=== PATIENT | male | born 1970 | race Caucasian/White ===

== ENCOUNTER 2017-06-09 15:21 | Emergency (ER) | payer MEDICAID ==
[~2017-06-09] VITALS: Ht 182.9 cm; Wt 79.5 kg
[~2017-06-09 15:21] MED LIST: ATI1T PO; CLIN300C11 PO; NEOM28OI TOP; PANT-47 PO; VENL-191 PO; VENL75CA55 PO; ZIPR20CA2 PO; ZIPR60CA2 PO
[2017-06-09 15:38] VITALS: BP 132/98
[2017-06-09] MEDS ORDERED: mupirocin 2% ointment 22GM TP STA (15:45)
[2017-06-09] MEDS ORDERED: TETanus/Pertussis (Acell)/Diphther VAC/PF (Tdap-Adult) 0.5ml syringe IM ONE (15:45)
[2017-06-09] MEDS ORDERED: CefTRIAXone/D5W-Rocephin 1gm 50 ML IV ONE (15:45)
[2017-06-09] MEDS ORDERED: sulfamethoxazole/trimethoprim DS (800/160mg) tablet PO ONE (15:45)
[2017-06-09] MEDS ORDERED: SULF1TAB49 PO (16:05)
[2017-06-09] MEDS ORDERED: CEPH500C5 PO (16:05)
[2017-06-09 16:12] LABS: BASOPHILS % (AUTO) 0.4 % (0-1); EOSINOPHILS # (AUTO) 0.6 X10'3 (0-0.9); EOSINOPHILS % (AUTO) 5.5 % (0-6); HEMATOCRIT 43.3 % (42.0-52.0); HEMOGLOBIN 15.1 g/dl (14.0-17.9); LYMPHOCYTES # (AUTO) 1.1 X10'3 (1.1-4.8); LYMPHOCYTES % (AUTO) 10.8 % (21-51); MEAN CORPUSCULAR HEMOGLOBIN 31.3 PG (27.0-31.0); MEAN CORPUSCULAR HGB CONC 34.9 % (33.0-36.5); MEAN CORPUSCULAR VOLUME 89.4 FL (78-98); MONOCYTES # (AUTO) 0.9 X10'3 (0-0.9); MONOCYTES % (AUTO) 9.1 % (2-12); NEUTROPHILS # (AUTO) 7.7 X10'3 (1.8-7.7); NEUTROPHILS % (AUTO) 74.2 % (42-75); PLATELET COUNT 200 X10'3 (140-440); RED BLOOD COUNT 4.85 X10'6 (4.70-6.10); RED CELL DISTRIBUTION WIDTH 12.6 % (11.5-14.5); WHITE BLOOD COUNT 10.4 X10'3 (4.5-11.0)
[2017-06-09 16:24] LABS: ALBUMIN 3.3 G/DL (3.4-5.0); ANION GAP 9 (8-16); BLOOD UREA NITROGEN 15 MG/DL (7-18); BUN/CREATININE RATIO 18.1 (5.4-32.0); CHLORIDE 102 MMOL/L (99-107); CREATININE 0.83 MG/DL (0.60-1.10); GLUCOSE 141 MG/DL (70-104); POTASSIUM 3.8 MMOL/L (3.5-5.1); SODIUM 136 MMOL/L (135-145); TOTAL CARBON DIOXIDE 25.5 MMOL/L (24-32); eGFR > 90 ML/MIN
[2017-06-09] MEDS ORDERED: CefTRIAXone 1000mg IM Kit (w/lidocaine diluent) IM ONE (16:55)
== END 2017-06-09 17:20 | disposition home or self-care (01) ==
LOC: ER 15:22
DX: L02.413 Cutaneous abscess of right upper limb (principal); L03.113 Cellulitis of right upper limb; L01.00 Impetigo, unspecified; J45.909 Unspecified asthma, uncomplicated; F15.10 Other stimulant abuse, uncomplicated; F12.10 Cannabis abuse, uncomplicated; Z86.14 Personal history of Methicillin resistant Staphylococcus aureus infection; Z98.890 Other specified postprocedural states; Z56.0 Unemployment, unspecified; Z79.899 Other long term (current) drug therapy
CPT/HCPCS: 36415; 80048; 85025; 90471; 90715; 96372; 99284; J0696

== ENCOUNTER 2017-09-02 08:46 | Inpatient (IN) | payer MEDICAID ==
[~2017-09-02] VITALS: Ht 182.9 cm; Wt 75.0 kg
[~2017-09-02 08:46] MED LIST changes: +CEPH500C5 PO
[2017-09-02 09:28] LABS: BASOPHILS % (AUTO) 0.3 % (0-1); EOSINOPHILS # (AUTO) 0.4 X10'3 (0-0.9); EOSINOPHILS % (AUTO) 2.6 % (0-6); HEMATOCRIT 41.6 % (42.0-52.0); HEMOGLOBIN 14.6 g/dl (14.0-17.9); LYMPHOCYTES # (AUTO) 0.6 X10'3 (1.1-4.8); LYMPHOCYTES % (AUTO) 4.3 % (21-51); MEAN CORPUSCULAR HEMOGLOBIN 31.6 PG (27.0-31.0); MEAN CORPUSCULAR HGB CONC 35.1 % (33.0-36.5); MEAN CORPUSCULAR VOLUME 89.9 FL (78-98); MEAN PLATELET VOLUME 9.1 FL (7.4-10.4); MONOCYTES # (AUTO) 1.1 X10'3 (0-0.9); MONOCYTES % (AUTO) 7.3 % (2-12); NEUTROPHILS # (AUTO) 12.9 X10'3 (1.8-7.7); NEUTROPHILS % (AUTO) 85.5 % (42-75); PLATELET COUNT 173 X10'3 (140-440); RED BLOOD COUNT 4.63 X10'6 (4.70-6.10); RED CELL DISTRIBUTION WIDTH 12.9 % (11.5-14.5); WHITE BLOOD COUNT 15.1 X10'3 (4.5-11.0)
[2017-09-02 09:43] LABS: ALANINE AMINOTRANSFERASE 29 U/L (12-78); ALBUMIN 3.1 G/DL (3.4-5.0); ALBUMIN/GLOBULIN RATIO 0.8 (1.1-1.5); ALKALINE PHOSPHATASE 86 IU/L (46-116); ANION GAP 6 (8-16); ASPARTATE AMINO TRANSFERASE 23 U/L (10-37); BILIRUBIN,TOTAL 0.5 MG/DL (0.1-1.0); BLOOD UREA NITROGEN 15 MG/DL (7-18); BUN/CREATININE RATIO 17.9 (5.4-32.0); CALCIUM 8.6 MG/DL (8.5-10.1); CHLORIDE 103 MMOL/L (99-107); CREATININE 0.84 MG/DL (0.60-1.10); GLUCOSE 102 MG/DL (70-104); POTASSIUM 3.6 MMOL/L (3.5-5.1); SODIUM 138 MMOL/L (135-145); TOTAL CARBON DIOXIDE 29.4 MMOL/L (24-32); TOTAL PROTEIN 6.9 G/DL (6.4-8.2); eGFR > 90 ML/MIN
[2017-09-02] MEDS ORDERED: normal saline 1000ML IV soln IV ONE (10:05)
[2017-09-02] MEDS ORDERED: morphine 4 MG/ML inj SYRINge IV ONE (10:05)
[2017-09-02] MEDS ORDERED: vancomycin/NS 1 GM ADD-VANTAGE 250 ML IV ONE (10:05)
[2017-09-02] MEDS ORDERED: CefTRIAXone 2gm/D5W 50ml 50 ML IV ONE (10:05)
[2017-09-02] MEDS ORDERED: acetaminophen 325mg tablet PO PRN (10:40)
[2017-09-02] MEDS ORDERED: morphine 4 MG/ML inj SYRINge IV PRN ×2 (10:40)
[2017-09-02] MEDS ORDERED: mag hydrox/Alum hydrox/simeth 30ml oral suspension PO PRN (10:40)
[2017-09-02] MEDS ORDERED: magnesium hydroxide 30ml (MOM) UD suspension PO PRN (10:40)
[2017-09-02] MEDS ORDERED: HYDROcodone/acetaminophen 5mg/325mg tablet PO PRN (10:40)
[2017-09-02] MEDS ORDERED: ondansetron/PF 4mg/2ml inj IV PRN (10:40)
[2017-09-02] MEDS: vancomycin/NS 1 GM ADD-VANTAGE 250 ML IV SCH ×2 (11:28→19:44)
[2017-09-02 12:00] VITALS: BP 161/90
[2017-09-02] MEDS: dextrose 5%-1/2 normal saline 1,000 ML IV SCH (13:26)
[2017-09-02 19:00] VITALS: BP 134/83
[2017-09-02] MEDS: docusate sod 100mg capsule PO SCH (19:45)
[2017-09-02] MEDS ORDERED: vancomycin/NS 1 GM ADD-VANTAGE 250 ML IV SCH (20:00)
[2017-09-02 23:30] VITALS: BP 142/85
[2017-09-03] MEDS: dextrose 5%-1/2 normal saline 1,000 ML IV SCH ×3 (01:01→14:02)
[2017-09-03] MEDS: HYDROcodone/acetaminophen 10/325mg tab PO PRN (01:10)
[2017-09-03] MEDS: vancomycin/NS 1 GM ADD-VANTAGE 250 ML IV SCH ×2 (03:13→11:10)
[2017-09-03 05:05] LABS: BASOPHILS # (AUTO) 0.1 X10'3 (0-0.2); BASOPHILS % (AUTO) 0.8 % (0-1); EOSINOPHILS # (AUTO) 0.4 X10'3 (0-0.9); EOSINOPHILS % (AUTO) 2.8 % (0-6); HEMATOCRIT 40.6 % (42.0-52.0); HEMOGLOBIN 14.1 g/dl (14.0-17.9); LYMPHOCYTES # (AUTO) 1.2 X10'3 (1.1-4.8); LYMPHOCYTES % (AUTO) 9.3 % (21-51); MEAN CORPUSCULAR HEMOGLOBIN 31.4 PG (27.0-31.0); MEAN CORPUSCULAR HGB CONC 34.6 % (33.0-36.5); MEAN CORPUSCULAR VOLUME 90.6 FL (78-98); MEAN PLATELET VOLUME 9.9 FL (7.4-10.4); MONOCYTES # (AUTO) 1.4 X10'3 (0-0.9); MONOCYTES % (AUTO) 11.2 % (2-12); NEUTROPHILS # (AUTO) 9.5 X10'3 (1.8-7.7); NEUTROPHILS % (AUTO) 75.9 % (42-75); PLATELET COUNT 171 X10'3 (140-440); RED BLOOD COUNT 4.48 X10'6 (4.70-6.10); RED CELL DISTRIBUTION WIDTH 12.6 % (11.5-14.5); WHITE BLOOD COUNT 12.5 X10'3 (4.5-11.0)
[2017-09-03 05:25] LABS: ALBUMIN 2.5 G/DL (3.4-5.0); ANION GAP 10 (8-16); BLOOD UREA NITROGEN 11 MG/DL (7-18); BUN/CREATININE RATIO 13.1 (5.4-32.0); CALCIUM 8.2 MG/DL (8.5-10.1); CHLORIDE 101 MMOL/L (99-107); CREATININE 0.84 MG/DL (0.60-1.10); GLUCOSE 110 MG/DL (70-104); POTASSIUM 3.9 MMOL/L (3.5-5.1); SODIUM 137 MMOL/L (135-145); TOTAL CARBON DIOXIDE 26.4 MMOL/L (24-32); eGFR > 90 ML/MIN
[2017-09-03 09:22] VITALS: BP 152/90
[2017-09-03] MEDS: enoxaparin 40mg/0.4ml syringe SUBCUT SCH (09:29)
[2017-09-03] MEDS: docusate sod 100mg capsule PO SCH ×2 (09:29→22:03)
[2017-09-03] MEDS ORDERED: LORazepam 1 MG tablet PO PRN (09:50)
[2017-09-03] MEDS ORDERED: VANCOMYCIN LEVEL IV ONE (10:30)
[2017-09-03] MEDS: venlafaxine XR 75mg capsule (Q24H) PO SCH (11:10)
[2017-09-03 11:54] VITALS: BP 149/89
[2017-09-03 20:00] VITALS: BP 144/80
[2017-09-03] MEDS: lactobacillus rhamnosus 10,000 MMU CELLS/CAPSULE PO SCH (22:03)
[2017-09-03] MEDS: ziprasidone 20mg capsule PO SCH (22:03)
[2017-09-04] VITALS: BP 133/80
[2017-09-04] MEDS: dextrose 5%-1/2 normal saline 1,000 ML IV SCH ×3 (01:01→17:20)
[2017-09-04 07:25] LABS: BASOPHILS % (AUTO) 0.4 % (0-1); EOSINOPHILS # (AUTO) 0.5 X10'3 (0-0.9); EOSINOPHILS % (AUTO) 4.3 % (0-6); HEMATOCRIT 39.7 % (42.0-52.0); LYMPHOCYTES # (AUTO) 0.9 X10'3 (1.1-4.8); LYMPHOCYTES % (AUTO) 8.4 % (21-51); MEAN CORPUSCULAR HEMOGLOBIN 31.7 PG (27.0-31.0); MEAN CORPUSCULAR HGB CONC 35.3 % (33.0-36.5); MEAN CORPUSCULAR VOLUME 89.8 FL (78-98); MEAN PLATELET VOLUME 8.5 FL (7.4-10.4); MONOCYTES # (AUTO) 0.9 X10'3 (0-0.9); MONOCYTES % (AUTO) 8.6 % (2-12); NEUTROPHILS # (AUTO) 8.3 X10'3 (1.8-7.7); NEUTROPHILS % (AUTO) 78.3 % (42-75); PLATELET COUNT 183 X10'3 (140-440); RED BLOOD COUNT 4.42 X10'6 (4.70-6.10); RED CELL DISTRIBUTION WIDTH 12.4 % (11.5-14.5); WHITE BLOOD COUNT 10.6 X10'3 (4.5-11.0)
[2017-09-04 07:36] LABS: ALBUMIN 2.4 G/DL (3.4-5.0); ANION GAP 5 (8-16); BLOOD UREA NITROGEN 10 MG/DL (7-18); BUN/CREATININE RATIO 13.3 (5.4-32.0); CALCIUM 8.7 MG/DL (8.5-10.1); CHLORIDE 105 MMOL/L (99-107); CREATININE 0.75 MG/DL (0.60-1.10); GLUCOSE 114 MG/DL (70-104); SODIUM 138 MMOL/L (135-145); TOTAL CARBON DIOXIDE 28.1 MMOL/L (24-32); eGFR > 90 ML/MIN
[2017-09-04] MEDS: pantoprazole 40mg Tablet.DR PO SCH (08:43)
[2017-09-04] MEDS: lactobacillus rhamnosus 10,000 MMU CELLS/CAPSULE PO SCH ×2 (08:43→20:08)
[2017-09-04] MEDS: venlafaxine XR 75mg capsule (Q24H) PO SCH (08:43)
[2017-09-04] MEDS: docusate sod 100mg capsule PO SCH ×2 (08:43→20:08)
[2017-09-04] MEDS: enoxaparin 40mg/0.4ml syringe SUBCUT SCH (08:44)
[2017-09-04 08:50] VITALS: BP 132/92
[2017-09-04 11:38] VITALS: BP 145/87
[2017-09-04 18:00] VITALS: BP 141/76
[2017-09-04] MEDS ORDERED: VANCOMYCIN LEVEL IV ONE (18:30)
[2017-09-04] MEDS: ziprasidone 20mg capsule PO SCH (20:09)
[2017-09-04] MEDS: HYDROcodone/acetaminophen 10/325mg tab PO PRN (20:14)
[2017-09-04 22:04] LABS: URINE AMPHETAMINE SCREEN NEGATIVE (Neg); URINE BARBITUATE SCREEN NEGATIVE (Neg); URINE BENZODIAZEPINES SCREEN NEGATIVE (Neg); URINE CANNABINOID SCREEN NEGATIVE (Neg); URINE COCAINE SCREEN NEGATIVE (Neg); URINE METHADONE SCREEN NEGATIVE (Neg); URINE OPIATE SCREEN NEGATIVE (Neg); URINE PHENCYCLIDINE SCREEN NEGATIVE (Neg)
[2017-09-05] VITALS: BP 124/83
[2017-09-05 05:03] LABS: BASOPHILS # (AUTO) 0.1 X10'3 (0-0.2); BASOPHILS % (AUTO) 1.2 % (0-1); EOSINOPHILS # (AUTO) 0.6 X10'3 (0-0.9); EOSINOPHILS % (AUTO) 6.9 % (0-6); HEMATOCRIT 40.9 % (42.0-52.0); HEMOGLOBIN 14.1 g/dl (14.0-17.9); LYMPHOCYTES # (AUTO) 1.3 X10'3 (1.1-4.8); MEAN CORPUSCULAR HEMOGLOBIN 31.1 PG (27.0-31.0); MEAN CORPUSCULAR HGB CONC 34.4 % (33.0-36.5); MEAN CORPUSCULAR VOLUME 90.4 FL (78-98); MEAN PLATELET VOLUME 8.8 FL (7.4-10.4); MONOCYTES # (AUTO) 0.8 X10'3 (0-0.9); MONOCYTES % (AUTO) 9.9 % (2-12); NEUTROPHILS # (AUTO) 5.3 X10'3 (1.8-7.7); PLATELET COUNT 194 X10'3 (140-440); RED BLOOD COUNT 4.52 X10'6 (4.70-6.10); RED CELL DISTRIBUTION WIDTH 12.4 % (11.5-14.5)
[2017-09-05 05:25] LABS: ALBUMIN 2.4 G/DL (3.4-5.0); BLOOD UREA NITROGEN 10 MG/DL (7-18); BUN/CREATININE RATIO 14.1 (5.4-32.0); CALCIUM 8.8 MG/DL (8.5-10.1); CHLORIDE 105 MMOL/L (99-107); CREATININE 0.71 MG/DL (0.60-1.10); GLUCOSE 101 MG/DL (70-104); POTASSIUM 4.1 MMOL/L (3.5-5.1); TOTAL CARBON DIOXIDE 28.9 MMOL/L (24-32); eGFR > 90 ML/MIN
[2017-09-05 05:49] LABS: ANION GAP 6 (8-16); SODIUM 140 MMOL/L (135-145)
[2017-09-05 07:13] VITALS: BP 142/90
[2017-09-05] MEDS: venlafaxine XR 75mg capsule (Q24H) PO SCH (07:40)
[2017-09-05] MEDS: pantoprazole 40mg Tablet.DR PO SCH (07:40)
[2017-09-05] MEDS: dextrose 5%-1/2 normal saline 1,000 ML IV SCH ×2 (07:40→18:38)
[2017-09-05] MEDS: lactobacillus rhamnosus 10,000 MMU CELLS/CAPSULE PO SCH ×2 (07:40→19:19)
[2017-09-05] MEDS: docusate sod 100mg capsule PO SCH ×2 (07:41→19:20)
[2017-09-05] MEDS: enoxaparin 40mg/0.4ml syringe SUBCUT SCH (07:41)
[2017-09-05 12:06] VITALS: BP 147/91
[2017-09-05 18:00] VITALS: BP 155/80
[2017-09-05] MEDS: ziprasidone 20mg capsule PO SCH (20:51)
[2017-09-05 21:17] LABS: CLARITY,URINE CLEAR (Clear); COLOR,URINE YELLOW (Yellow); GLUCOSE, URINE NEGATIVE (Neg); KETONES,URINE NEGATIVE (Neg); LEUKOCYTE ESTERASE ,URINE NEGATIVE (Neg); NITRITES, URINE NEGATIVE (Neg); OCCULT BLOOD,URINE NEGATIVE (Neg); PROTEIN,URINE NEGATIVE (Neg); UA COLLECTION TYPE NON-SPECIFIED; UROBILINOGEN,URINE 0.2 E.U/dL (0.2-1.0)
[2017-09-06] VITALS: BP 129/79
[2017-09-06] MEDS: dextrose 5%-1/2 normal saline 1,000 ML IV SCH (00:59)
[2017-09-06 07:14] LABS: ALBUMIN 2.5 G/DL (3.4-5.0); ANION GAP 6 (8-16); BLOOD UREA NITROGEN 14 MG/DL (7-18); BUN/CREATININE RATIO 16.9 (5.4-32.0); CALCIUM 8.9 MG/DL (8.5-10.1); CHLORIDE 105 MMOL/L (99-107); CREATININE 0.83 MG/DL (0.60-1.10); GLUCOSE 106 MG/DL (70-104); POTASSIUM 4.2 MMOL/L (3.5-5.1); SODIUM 141 MMOL/L (135-145); TOTAL CARBON DIOXIDE 29.8 MMOL/L (24-32); eGFR > 90 ML/MIN
[2017-09-06 07:35] LABS: BASOPHILS # (AUTO) 0.1 X10'3 (0-0.2); BASOPHILS % (AUTO) 1.1 % (0-1); EOSINOPHILS # (AUTO) 0.5 X10'3 (0-0.9); EOSINOPHILS % (AUTO) 6.1 % (0-6); HEMATOCRIT 44.7 % (42.0-52.0); HEMOGLOBIN 15.4 g/dl (14.0-17.9); LYMPHOCYTES # (AUTO) 1.3 X10'3 (1.1-4.8); LYMPHOCYTES % (AUTO) 16.4 % (21-51); MEAN CORPUSCULAR HEMOGLOBIN 31.3 PG (27.0-31.0); MEAN CORPUSCULAR HGB CONC 34.4 % (33.0-36.5); MEAN PLATELET VOLUME 8.5 FL (7.4-10.4); MONOCYTES # (AUTO) 0.8 X10'3 (0-0.9); MONOCYTES % (AUTO) 10.5 % (2-12); NEUTROPHILS # (AUTO) 4.9 X10'3 (1.8-7.7); NEUTROPHILS % (AUTO) 65.9 % (42-75); PLATELET COUNT 220 X10'3 (140-440); RED BLOOD COUNT 4.92 X10'6 (4.70-6.10); RED CELL DISTRIBUTION WIDTH 11.9 % (11.5-14.5); WHITE BLOOD COUNT 7.6 X10'3 (4.5-11.0)
[2017-09-06 08:00] VITALS: BP 145/84
[2017-09-06] MEDS: enoxaparin 40mg/0.4ml syringe SUBCUT SCH (08:45)
[2017-09-06] MEDS: pantoprazole 40mg Tablet.DR PO SCH (08:46)
[2017-09-06] MEDS: lactobacillus rhamnosus 10,000 MMU CELLS/CAPSULE PO SCH (08:46)
[2017-09-06] MEDS: docusate sod 100mg capsule PO SCH (08:46)
[2017-09-06] MEDS: venlafaxine XR 75mg capsule (Q24H) PO SCH (08:46)
[2017-09-06 12:00] VITALS: BP 134/72
[2017-09-06] MEDS ORDERED: MUPI22OI30 TOP (13:06)
== END 2017-09-06 15:46 | disposition home or self-care (01) | DRG 383 ==
LOC: ER 08:47 → ED HOLD 10:38 → SUR 3N 12:01
PROVIDERS: ADMIT Internal Medicine; ATTEND Family Medicine
PROC: 0S9D3ZZ Drainage of Left Knee Joint, Percutaneous Approach (ICD-10-PCS; principal; 2017-09-02)
DX: L03.116 Cellulitis of left lower limb (principal); F20.9 Schizophrenia, unspecified; L02.416 Cutaneous abscess of left lower limb; F41.9 Anxiety disorder, unspecified; F31.9 Bipolar disorder, unspecified; J45.909 Unspecified asthma, uncomplicated; F12.90 Cannabis use, unspecified, uncomplicated; Z59.0 Homelessness; Z86.14 Personal history of Methicillin resistant Staphylococcus aureus infection; Z87.891 Personal history of nicotine dependence; Z79.899 Other long term (current) drug therapy; Z56.0 Unemployment, unspecified
CPT/HCPCS: 20610; 36415; 73564; 80048; 80053; 80202; 80305; 81003; 85025; 85651; 87070; 87077; 87186; 99285; A6212; A6213; J0696; J1650; J2270; J3370; J7030

== ENCOUNTER 2018-05-09 09:49 | Emergency (ER) | payer MEDICAID ==
[~2018-05-09] VITALS: Ht 180.3 cm; Wt 75.0 kg
[~2018-05-09 09:49] MED LIST changes: -CEPH500C5 PO; -CLIN300C11 PO; -NEOM28OI TOP; -VENL-191 PO; -ZIPR20CA2 PO
[2018-05-09 09:51] VITALS: BP 158/98
[2018-05-09] MEDS ORDERED: TRAM50TA2 PO (10:12)
[2018-05-09] MEDS ORDERED: IBUP-1986 PO (10:12)
== END 2018-05-09 11:10 | disposition home or self-care (01) ==
LOC: ER 09:49
DX: S62.610A Displaced fracture of proximal phalanx of right index finger, initial encounter for closed fracture (principal); S62.612A Displaced fracture of proximal phalanx of right middle finger, initial encounter for closed fracture; S62.614A Displaced fracture of proximal phalanx of right ring finger, initial encounter for closed fracture; J45.909 Unspecified asthma, uncomplicated; Z86.14 Personal history of Methicillin resistant Staphylococcus aureus infection; F12.90 Cannabis use, unspecified, uncomplicated; F15.90 Other stimulant use, unspecified, uncomplicated; Z79.899 Other long term (current) drug therapy; Z56.0 Unemployment, unspecified; W17.89XA Other fall from one level to another, initial encounter; Y93.89 Activity, other specified; Y92.89 Other specified places as the place of occurrence of the external cause; Y99.8 Other external cause status
CPT/HCPCS: 29125; 73130; 99283

== ENCOUNTER 2018-05-12 12:26 | Emergency (ER) | payer MEDICAID ==
[~2018-05-12 12:26] MED LIST changes: +IBUP-1986 PO; +TRAM50TA2 PO
--- NOTE | 2018-05-12 12:55 | NUR ---
Not in lobbby at 1244 amd [id number]
== END 2018-05-12 13:56 | disposition left against medical advice (07) ==
LOC: ER 12:28
DX: M79.643 Pain in unspecified hand (principal); Z53.21 Procedure and treatment not carried out due to patient leaving prior to being seen by health care provider

== ENCOUNTER 2018-05-17 10:58 | Inpatient (IN) | payer MEDICAID ==
[~2018-05-17] VITALS: Ht 180.3 cm; Wt 75.0 kg
[2018-05-17 11:51] LABS: BASOPHILS # (AUTO) 0.1 X10'3 (0-0.2); BASOPHILS % (AUTO) 0.5 % (0-1); EOSINOPHILS # (AUTO) 0.3 X10'3 (0-0.9); EOSINOPHILS % (AUTO) 2.7 % (0-6); HEMATOCRIT 42.4 % (42.0-52.0); HEMOGLOBIN 14.9 g/dl (14.0-17.9); LYMPHOCYTES # (AUTO) 1.3 X10'3 (1.1-4.8); LYMPHOCYTES % (AUTO) 10.5 % (21-51); MEAN CORPUSCULAR HEMOGLOBIN 31.3 PG (27.0-31.0); MEAN CORPUSCULAR HGB CONC 35.1 g/dL (33.0-36.5); MEAN CORPUSCULAR VOLUME 89.2 FL (78-98); MONOCYTES # (AUTO) 1.6 X10'3 (0-0.9); MONOCYTES % (AUTO) 12.9 % (2-12); NEUTROPHILS % (AUTO) 73.4 % (42-75); PLATELET COUNT 266 X10'3 (140-440); RED BLOOD COUNT 4.76 X10'6 (4.70-6.10); RED CELL DISTRIBUTION WIDTH 12.6 % (11.5-14.5); WHITE BLOOD COUNT 12.3 X10'3 (4.5-11.0)
[2018-05-17] MEDS ORDERED: vancomycin/NS 1 GM ADD-VANTAGE 250 ML X 1 DOSE IV ONE (11:55)
[2018-05-17 12:10] LABS: ALANINE AMINOTRANSFERASE 31 U/L (12-78); ALBUMIN 3.4 G/DL (3.4-5.0); ALBUMIN/GLOBULIN RATIO 0.8 (1.1-1.5); ALKALINE PHOSPHATASE 123 IU/L (46-116); ANION GAP 6 (8-16); ASPARTATE AMINO TRANSFERASE 26 U/L (10-37); BILIRUBIN,TOTAL 0.3 MG/DL (0.1-1.0); BLOOD UREA NITROGEN 20 MG/DL (7-18); BUN/CREATININE RATIO 23.8 (5.4-32.0); CALCIUM 9.3 MG/DL (8.5-10.1); CHLORIDE 99 MMOL/L (99-107); CREATININE 0.84 MG/DL (0.60-1.10); GLUCOSE 111 MG/DL (70-104); INR 0.9 INR; PARTIAL THROMBOPLASTIN TIME 31 SECONDS (22-32); POTASSIUM 3.8 MMOL/L (3.5-5.1); PROTHROMBIN TIME 9.5 SECONDS (9.0-12.0); SODIUM 133 MMOL/L (135-145); TOTAL CARBON DIOXIDE 27.9 MMOL/L (24-32); TOTAL PROTEIN 7.8 G/DL (6.4-8.2); eGFR > 90 ML/MIN
[2018-05-17] MEDS ORDERED: magnesium 4gm in 100ml NS 100 ML IV PRN (13:10)
[2018-05-17] MEDS ORDERED: magnesium Cl slow-release 64mg tablet PO PRN (13:10)
[2018-05-17] MEDS ORDERED: ondansetron/PF 4mg/2ml inj IV PRN (13:10)
[2018-05-17] MEDS ORDERED: magnesium 2GM in 50ml NS 50 ML IV PRN (13:10)
[2018-05-17] MEDS ORDERED: magnesium hydroxide 30ml (MOM) UD suspension PO PRN (13:10)
[2018-05-17] MEDS ORDERED: mag hydrox/Alum hydrox/simeth 30ml oral suspension PO PRN (13:10)
[2018-05-17] MEDS ORDERED: potassium Cl 40MEQ/NS 500ml 500 ML IV PRN ×2 (13:10)
[2018-05-17] MEDS ORDERED: potassium Cl 20 mEq SR tablet PO PRN ×2 (13:10)
[2018-05-17] MEDS ORDERED: acetaminophen 325mg tablet PO PRN ×2 (13:10)
[2018-05-17] MEDS ORDERED: HYDROcodone/acetaminophen 10/325mg tab PO PRN (13:10)
[2018-05-17] MEDS ORDERED: normal saline 1000ml 1,000 ML IV SCH (13:10)
[2018-05-17] MEDS ORDERED: morphine 4 MG/ML inj SYRINge IV PRN ×2 (13:10)
[2018-05-17] MEDS ORDERED: HYDROcodone/acetaminophen 5mg/325mg tablet PO PRN (13:10)
[2018-05-17 13:42] LABS: CLARITY,URINE CLEAR (Clear); COLOR,URINE YELLOW (Yellow); GLUCOSE, URINE NEGATIVE (Neg); KETONES,URINE NEGATIVE (Neg); LEUKOCYTE ESTERASE ,URINE NEGATIVE (Neg); NITRITES, URINE NEGATIVE (Neg); OCCULT BLOOD,URINE NEGATIVE (Neg); PH,URINE 5.5 (4.8-8.0); PROTEIN,URINE NEGATIVE (Neg); UROBILINOGEN,URINE 0.2 E.U/dL (0.2-1.0)
[2018-05-17 13:43] LABS: UA COLLECTION TYPE URINAL
[2018-05-17 13:59] VITALS: BP 162/102
[2018-05-17] MEDS ORDERED: morphine 4 MG/ML inj SYRINge IV ONE (14:05)
[2018-05-17] MEDS ORDERED: CEPH-572 PO (15:25)
[2018-05-17] MEDS ORDERED: SULF1TAB49 PO (15:25)
[2018-05-17] MEDS ORDERED: vancomycin/NS 1 GM ADD-VANTAGE 250 ML X 1 DOSE IV SCH (20:00)
[2018-05-17] MEDS ORDERED: heparin, porcine 5000 units/ml vial SQ SCH (20:00)
[2018-05-17] MEDS ORDERED: temazepam 15mg capsule PO PRN (21:00)
[2018-05-18] MEDS ORDERED: K and/or MAG REPLACEMENT MC SCH (08:00)
[2018-05-18] MEDS ORDERED: nicotine 14mg patch - 24hr TD SCH (08:00)
[2018-05-18] MEDS ORDERED: VANCOMYCIN LEVEL IV ONE (19:30)
== END 2018-05-17 16:29 | disposition left against medical advice (07) | DRG 383 ==
LOC: ER 10:58 → ED HOLD 13:10
PROVIDERS: ADMIT Internal Medicine; ATTEND Internal Medicine
DX: L03.113 Cellulitis of right upper limb (principal); F20.9 Schizophrenia, unspecified; B95.62 Methicillin resistant Staphylococcus aureus infection as the cause of diseases classified elsewhere; F17.210 Nicotine dependence, cigarettes, uncomplicated; F31.9 Bipolar disorder, unspecified; F41.9 Anxiety disorder, unspecified; J45.909 Unspecified asthma, uncomplicated; L02.511 Cutaneous abscess of right hand; L03.116 Cellulitis of left lower limb; Z53.21 Procedure and treatment not carried out due to patient leaving prior to being seen by health care provider
CPT/HCPCS: 36415; 71045; 73130; 73564; 80053; 81003; 83605; 84145; 85025; 85610; 85730; 87040; 96365; 99285; G0378; J2270; J3370

== ENCOUNTER 2018-05-21 15:26 | Inpatient (IN) | payer MEDICAID | END 2018-05-25 12:15 | disposition home or self-care (01) | LOC: ER 15:26 → ED HOLD 19:29 → ORTHO 4S 22:53 ==

== ENCOUNTER 2018-06-20 23:56 | Emergency (ER) | payer MEDICAID ==
[~2018-06-20] VITALS: Ht 180.3 cm; Wt 65.0 kg
[~2018-06-20 23:56] MED LIST changes: -ATI1T PO; +CLIN-96 PO; -IBUP-1986 PO; -PANT-47 PO; -TRAM50TA2 PO
[2018-06-20 23:59] VITALS: BP 152/93
== END 2018-06-21 01:15 | disposition left against medical advice (07) ==
LOC: ER 23:56
DX: M79.644 Pain in right finger(s) (principal); Z53.21 Procedure and treatment not carried out due to patient leaving prior to being seen by health care provider

== ENCOUNTER 2021-07-31 04:27 | Emergency (ER) | payer MEDICAID ==
[~2021-07-31] VITALS: Ht 182.9 cm; Wt 84.1 kg
[~2021-07-31 04:27] MED LIST changes: -CLIN-96 PO; +CLIN-97 PO
[2021-07-31 04:39] VITALS: BP 126/80
[2021-07-31] MEDS ORDERED: TETanus/Pertussis (Acell)/Diphther VAC/PF (Tdap-Adult) 0.5ml syringe IMVAC ONE (05:40)
[2021-07-31] MEDS ORDERED: LIDOcaine 1%/PF 5ML 10 MG/ML VIAL IJ ONE (05:45)
[2021-07-31] MEDS ORDERED: AMOX-117 PO (06:03)
[2021-07-31] MEDS ORDERED: amox tr/potassium clavulanate 875/125mg TAB PO ONE (06:05)
== END 2021-07-31 07:15 | disposition home or self-care (01) ==
LOC: ER 04:28
DX: S61.412A Laceration without foreign body of left hand, initial encounter (principal); W54.0XXA Bitten by dog, initial encounter; Y93.89 Activity, other specified; Y92.89 Other specified places as the place of occurrence of the external cause; Y99.8 Other external cause status
CPT/HCPCS: 12001; 73130; 90715; 99283

== ENCOUNTER 2022-07-23 04:49 | Emergency (ER) | payer MEDICAID ==
[~2022-07-23] VITALS: Ht 157.5 cm; Wt 75.0 kg
[2022-07-23 04:56] VITALS: BP 132/79
[2022-07-23] MEDS ORDERED: TETRACAINE 0.5% 4 ML OPHTHALMIC DROPS LEFTEYE ONE (05:10)
--- NOTE | 2022-07-23 05:18 | NUR ---
Patient refuses visual accuity test stating, "I cannot even open my eyes."
[2022-07-23] MEDS ORDERED: ibuprofen 200mg tablet PO ONE (05:25)
[2022-07-23] MEDS ORDERED: acetaminophen 325mg tablet PO ONE (05:25)
[2022-07-23] MEDS ORDERED: traMADol 50MG tablet PO ONE (05:40)
[2022-07-23] MEDS ORDERED: erythromycin ophthalmic ointment 1gm tube LEFTEYE ONE (05:45)
[2022-07-23] MEDS ORDERED: ERYT1OIN6 LEFTEYE (06:03)
== END 2022-07-23 06:25 | disposition home or self-care (01) ==
LOC: ER 04:49
DX: H10.9 Unspecified conjunctivitis (principal); H53.8 Other visual disturbances; J45.909 Unspecified asthma, uncomplicated; F31.9 Bipolar disorder, unspecified; F20.9 Schizophrenia, unspecified; Z86.14 Personal history of Methicillin resistant Staphylococcus aureus infection; Z72.89 Other problems related to lifestyle; Z98.890 Other specified postprocedural states; Z56.0 Unemployment, unspecified; Z79.899 Other long term (current) drug therapy
CPT/HCPCS: 99284

== ENCOUNTER 2023-04-07 20:35 | Emergency (ER) | payer MEDICAID ==
[~2023-04-07] VITALS: Ht 180.3 cm; Wt 81.2 kg
[2023-04-07 20:38] VITALS: BP 146/81; PULSE 90; RESP 16; TEMP 99.1; O2SAT 99
[2023-04-07] MEDS ORDERED: acetaminophen w/codeine (30MG) #3 tablet PO ONE (23:10)
[2023-04-07] MEDS ORDERED: ACET-3068 PO (23:12)
== END 2023-04-07 23:23 | disposition home or self-care (01) ==
LOC: ER 20:36
DX: M79.89 Other specified soft tissue disorders (principal); M25.561 Pain in right knee
CPT/HCPCS: 73590; 99283

== ENCOUNTER 2024-02-29 11:16 | Emergency (ER) | payer MEDICAID ==
[~2024-02-29] VITALS: Ht 175.3 cm; Wt 77.3 kg
[2024-02-29 11:19] VITALS: TEMP 96.8
[2024-02-29] MEDS: HYDROmorphone 1 mg/ml syringe IV ONE ×2 (11:37→13:32)
[2024-02-29] MEDS: ondansetron/PF 4mg/2ml inj IV ONE ×2 (11:37→13:32)
[2024-02-29 12:08] LABS: BASOPHILS # (AUTO) 0.1 X10'3 (0-0.2); BASOPHILS % (AUTO) 1.2 % (0-1); EOSINOPHILS # (AUTO) 0.3 X10'3 (0-0.9); EOSINOPHILS % (AUTO) 3.6 % (0-6); HEMATOCRIT 45.7 % (42.0-52.0); HEMOGLOBIN 15.7 g/dl (14.0-17.9); LYMPHOCYTES # (AUTO) 1.2 X10'3 (1.1-4.8); LYMPHOCYTES % (AUTO) 15.1 % (21-51); MEAN CORPUSCULAR HEMOGLOBIN 31.7 PG (27.0-31.0); MEAN CORPUSCULAR HGB CONC 34.5 g/dL (33.0-36.5); MEAN PLATELET VOLUME 8.9 FL (7.4-10.4); MONOCYTES # (AUTO) 0.8 X10'3 (0-0.9); MONOCYTES % (AUTO) 9.8 % (2-12); NEUTROPHILS # (AUTO) 5.7 X10'3 (1.8-7.7); NEUTROPHILS % (AUTO) 70.3 % (42-75); PLATELET COUNT 167 X10'3 (140-440); RED BLOOD COUNT 4.97 X10'6 (4.70-6.10); RED CELL DISTRIBUTION WIDTH 12.7 % (11.5-14.5); WHITE BLOOD COUNT 8.1 X10'3 (4.5-11.0)
[2024-02-29 12:19] LABS: ALANINE AMINOTRANSFERASE 34 U/L (12-78); ALBUMIN 3.8 G/DL (3.4-5.0); ALBUMIN/GLOBULIN RATIO 1.2 (1.1-1.5); ALKALINE PHOSPHATASE 95 IU/L (46-116); ANION GAP 7 (8-16); ASPARTATE AMINO TRANSFERASE 29 U/L (10-37); BILIRUBIN,TOTAL 0.8 MG/DL (0.1-1.0); BLOOD UREA NITROGEN 19 MG/DL (7-18); BUN/CREATININE RATIO 19.6 (10.0-20.0); CALCIUM 8.7 MG/DL (8.5-10.1); CHLORIDE 107 MMOL/L (99-107); CREATININE 0.97 MG/DL (0.60-1.10); GLUCOSE 89 MG/DL (70-104); POTASSIUM 3.8 MMOL/L (3.5-5.1); SODIUM 139 MMOL/L (135-145); eCRCL 85 ML/MIN; eGFR 80 ML/MIN
[2024-02-29] MEDS ORDERED: iohexol 300mg/ml 100ml inj. ONE (12:47)
[2024-02-29 13:37] VITALS: BP 157/83; PULSE 85; RESP 18; O2SAT 98
[2024-02-29] MEDS: calcium carbonate 500mg chew tablet PO ONE (14:18)
== END 2024-02-29 14:49 | disposition left against medical advice (07) ==
LOC: ER 11:16
DX: K40.30 Unilateral inguinal hernia, with obstruction, without gangrene, not specified as recurrent (principal); J45.909 Unspecified asthma, uncomplicated; F31.9 Bipolar disorder, unspecified; F20.9 Schizophrenia, unspecified; Z56.0 Unemployment, unspecified; Z98.890 Other specified postprocedural states; Z79.899 Other long term (current) drug therapy
CPT/HCPCS: 36415; 74177; 80053; 85025; 96374; 96375; 96376; 99285; J1171; J2405; Q9967; 96361

== ENCOUNTER 2024-04-29 16:48 | Emergency (ER) | payer MEDICAID ==
[~2024-04-29] VITALS: Ht 180.3 cm; Wt 77.7 kg
[2024-04-29 18:24] LABS: EOSINOPHILS % (AUTO) 0.3 % (0-6); HEMOGLOBIN 15.6 g/dl (14.0-17.9); LYMPHOCYTES # (AUTO) 0.5 X10'3 (1.1-4.8); LYMPHOCYTES % (AUTO) 7.1 % (21-51); MEAN PLATELET VOLUME 8.9 FL (7.4-10.4); MONOCYTES % (AUTO) 22.1 % (2-12)
[2024-04-29 18:27] LABS: BASOPHILS % (AUTO) 0.1 % (0-1); HEMATOCRIT 43.5 % (42.0-52.0); MEAN CORPUSCULAR HEMOGLOBIN 32.1 PG (27.0-31.0); MEAN CORPUSCULAR HGB CONC 35.9 g/dL (33.0-36.5); MEAN CORPUSCULAR VOLUME 89.3 FL (78-98); MONOCYTES # (AUTO) 1.6 X10'3 (0-0.9); NEUTROPHILS # (AUTO) 5.2 X10'3 (1.8-7.7); NEUTROPHILS % (AUTO) 70.4 % (42-75); PLATELET COUNT 151 X10'3 (140-440); RED BLOOD COUNT 4.87 X10'6 (4.70-6.10); RED CELL DISTRIBUTION WIDTH 12.7 % (11.5-14.5); WHITE BLOOD COUNT 7.3 X10'3 (4.5-11.0)
[2024-04-29 18:46] LABS: ALANINE AMINOTRANSFERASE 32 U/L (12-78); ALBUMIN 2.9 G/DL (3.4-5.0); ALBUMIN/GLOBULIN RATIO 0.7 (1.1-1.5); ALKALINE PHOSPHATASE 69 IU/L (46-116); ANION GAP 6 (8-16); ASPARTATE AMINO TRANSFERASE 42 U/L (10-37); BILIRUBIN,TOTAL 0.6 MG/DL (0.1-1.0); BLOOD UREA NITROGEN 21 MG/DL (7-18); BUN/CREATININE RATIO 22.6 (10.0-20.0); CALCIUM 8.6 MG/DL (8.5-10.1); CHLORIDE 97 MMOL/L (99-107); CREATININE 0.93 MG/DL (0.60-1.10); GLUCOSE 102 MG/DL (70-104); POTASSIUM 3.5 MMOL/L (3.5-5.1); SODIUM 131 MMOL/L (135-145); TOTAL CARBON DIOXIDE 28.3 MMOL/L (24-32); eCRCL 94 ML/MIN; eGFR 84 ML/MIN
[2024-04-29 18:57] LABS: PRO BRAIN NATRIURETIC PEPTIDE 81 PG/ML (0-125)
[2024-04-29 22:45] VITALS: BP 142/75; PULSE 101; O2SAT 94
[2024-04-29] MEDS ORDERED: AZIT-164 PO (23:02)
[2024-04-29] MEDS ORDERED: IBUP-1984 PO (23:03)
[2024-04-29] MEDS ORDERED: ACET-2615 PO (23:03)
[2024-04-29] MEDS: ketorolac trometh 15mg/ml vial 15 MG/ML ML IM ONE (23:13)
[2024-04-29] MEDS: acetaminophen 325mg tablet PO ONE (23:13)
[2024-04-29 23:15] VITALS: TEMP 99.4
[2024-04-29 23:20] VITALS: RESP 18
== END 2024-04-29 23:27 | disposition home or self-care (01) ==
LOC: ER 16:49
DX: J11.1 Influenza due to unidentified influenza virus with other respiratory manifestations (principal); J45.909 Unspecified asthma, uncomplicated; F31.9 Bipolar disorder, unspecified; F20.9 Schizophrenia, unspecified; Z98.890 Other specified postprocedural states
CPT/HCPCS: 36415; 71045; 80053; 83880; 84484; 85025; 93005; 96372; 99285; J1885; A6449